=== PATIENT | male | born 1975 | race Caucasian/White ===

== ENCOUNTER 2018-01-29 08:43 | Emergency (ER) | payer BC ==
[2018-01-29] MEDS ORDERED: Sodium Chloride 0.9% 1000 ML 1,000 ML IV STA (09:12)
--- NOTE | 2018-01-29 09:21 | ERPHSYRPT ---
- History of Present Illness Time Seen by Provider: 01/29/18 09:06 Historian: patient Exam Limitations: no limitations Patient Subjective Stated Complaint: pt reports chest tightness, shortness of breath and weakness for 2 weeks [employer]. states he has a stressful job and has been working a lot lately. reports not sleeping well. reports history of panic attacks and anxiety. states "my legs feel weak" Triage Nursing Assessment: pt is aox3, pupils perrl, resps easy and non labored , lung sounds are clear throughout, radial pulses are strong and equal, heart sound are strong and regular. no edema appreciated. pt appears diaphoretic. skin is intact. pt afebrile. non radiating pain generalized to the chest - desribed as tightness. Physician History: 42 y/o male with history of anxiety comes to the ER with complaints of chest pain, shortness of breath and leg weakness. Pt states that he first had substernal chest pain 3 days ago and leg weakness for the past month. Pt states that he stays up at night from anxiety and only sleeps 3-4 hours per night. Pt describes the chest pain as dull, intermittent, as high as 5/10, and pt has not taken any pain meds. Pt also admits to occasional dyspnea and palpitations. Pt states that over the past month, his legs feel like heavy and he has a difficult time walking long distances. Timing/Duration: day(s) Activities at Onset: none Quality: dullness Location: substernal, central Chest Pain Radiation: no radiation Severity of Pain-Max: moderate Severity of Pain-Current: moderate Modifying Factors: Improves With: nothing Associated Symptoms: denies symptoms Prior Chest Pain/Cardiac Workup: no prior chest pain Nitro Today/Relief: no nitro taken today Aspirin Treatment Today: no aspirin today Allergies/Adverse Reactions: No Known Drug Allergies Allergy (Verified 08/02/14 13:55) Home Medications: Omeprazole 20 MG [Prilosec 20 mg] 20 mg PO DAILY 03/06/13 [History] Alprazolam 0.5 mg [xanAX 0.5 MG] 0.5 mg PO TID 01/29/18 [History] Trazodone HCl 50 mg [Desyrel 50 mg] 50 mg PO HS 01/29/18 [History] Valsartan/Hydrochlorothiazide [Valsartan-Hctz 160-12.5 mg Tab] 1 tablet PO DAILY 01/29/18 [History] Hx Tetanus, Diphtheria Vaccination/Date Given: Yes Hx Influenza Vaccination/Date Given: No Hx Pneumococcal Vaccination/Date Given: No Immunizations Up to Date: Yes - Review of Systems Constitutional: Weakness, No Fever, No Chills Eyes: No Symptoms Ears, Nose, & Throat: No Symptoms Respiratory: Dyspnea, Dyspnea on Exertion (MULLER), No Cough Cardiac: Chest Pain, Palpitations, No Edema, No Syncope Abdominal/Gastrointestinal: No Abdominal Pain, No Nausea, No Vomiting, No Diarrhea Genitourinary Symptoms: No Dysuria Musculoskeletal: No Back Pain, No Neck Pain Skin: No Rash Neurological: No Dizziness, No Focal Weakness, No Sensory Changes Psychological: No Symptoms Endocrine: No Symptoms All Other Systems: Reviewed and Negative - Past Medical History Pertinent Past Medical History: Yes Neurological History: No Pertinent History ENT History: No Pertinent History Cardiac History: Hypertension Respiratory History: No Pertinent History Endocrine Medical History: No Pertinent History Musculoskeletal History: No Pertinent History GI Medical History: GERD History: No Pertinent History Psycho-Social History: Anxiety, Depression, Panic Disorder Male Reproductive Disorders: No Pertinent History Other Medical History: BARRETTS ESOPHAGUS - Past Surgical History Past Surgical History: Yes Neuro Surgical History: No Pertinent History Cardiac: No Pertinent History Respiratory: No Pertinent History Gastrointestinal: Other Genitourinary: No Pertinent History Musculoskeletal: Orthopedic Surgery Male Surgical History: No Pertinent History Other Surgical History: EGD - Social History Smoking Status: Current every day smoker How long have you smoked: 23 years Exposure to second hand smoke: No Drug Use: none Patient Lives Alone: No - Nursing Vital Signs Nursing Vital Signs: Initial Vital Signs Temperature 98.5 F 01/29/18 08:49 Pulse Rate 88 01/29/18 08:49 Respiratory Rate 20 01/29/18 08:49 Blood Pressure 166/98 01/29/18 08:49 O2 Sat by Pulse Oximetry 99 01/29/18 08:49 Pain Scale Pain Intensity 1 - Physical Exam General Appearance: no apparent distress, alert Eye Exam: PERRL/EOMI, eyes nml inspection Ears, Nose, Throat Exam: normal ENT inspection, moist mucous membranes Neck Exam: normal inspection, non-tender, supple, full range of motion Respiratory Exam: normal breath sounds, lungs clear, No respiratory distress Cardiovascular Exam: regular rate/rhythm, normal heart sounds, normal peripheral pulses Gastrointestinal/Abdomen Exam: soft, normal bowel sounds, No tenderness, No mass Back Exam: normal inspection, No CVA tenderness, No vertebral tenderness Extremity Exam: normal inspection, normal range of motion Neurologic Exam: alert, oriented x 3, cooperative, normal mood/affect, sensation nml, No motor deficits Skin Exam: normal color, warm, dry SpO2: 99 Oxygen Delivery: Room Air - Course Nursing assessment & vital signs reviewed: Yes EKG Interpreted by Me: RATE, NORMAL AXIS, NORMAL INTERVALS, NORMAL QRS, NORMAL ST-T Ordered Tests: Active Orders 24 hr Category Date Time Status [employer] STAT Care 01/29/18 09:13 Active EKG-ER Only STAT Care 01/29/18 09:12 Active IV Insertion STAT Care 01/29/18 09:12 Active CHEST 2 VIEWS (PA AND LAT) Stat Exams 01/29/18 09:13 Completed CBC W DIFF Stat Lab 01/29/18 09:00 Completed CK-Creatinine Phosphokinase Stat Lab 01/29/18 09:00 Completed CMP Stat Lab 01/29/18 09:00 Completed TROPONIN Q3H Lab 01/29/18 09:00 Completed TROPONIN Q3H Lab 01/29/18 12:15 Ordered TROPONIN Q3H Lab 01/29/18 15:15 Ordered TROPONIN Q3H Lab 01/29/18 18:15 Ordered TROPONIN Q3H Lab 01/29/18 21:15 Ordered TSH, 3RD Generation Stat Lab 01/29/18 09:00 Completed UA W/RFX UR CULTURE Stat Lab 01/29/18 10:33 Completed Urine Triage Profile Stat Lab 01/29/18 09:13 Ordered Vitamin B12 Stat Lab 01/29/18 09:00 Completed Medication Summary Discontinued Medications Generic Name Dose Route Start Last Admin Trade Name Freq PRN Reason Stop Dose Admin Aspirin 81 mg 01/29/18 09:12 01/29/18 09:41 Baby Aspirin 81 Mg Chew PO 01/29/18 09:13 81 mg STAT ONE Administration Aspirin Confirm 01/29/18 09:38 Baby Aspirin 81 Mg Chew Administered 01/29/18 09:39 Dose 324 mg .ROUTE .STK-MED ONE Sodium Chloride 1,000 mls @ 999 mls/hr 01/29/18 09:12 01/29/18 09:41 Sodium Chloride 0.9% 1000 Ml IV 01/29/18 10:12 999 mls/hr .Q1H1M STA Administration Sodium Chloride Confirm 01/29/18 09:38 Sodium Chloride 0.9% 1000 Ml Administered 01/29/18 09:39 Dose 1,000 mls @ ud .ROUTE .K-MED ONE Lab/Rad Data: Laboratory Result Diagrams 01/29/18 09:00 01/29/18 09:00 Laboratory Results 01/29/18 01/29/18 01/29/18 Range/Units 10:33 09:00 09:00 WBC (4.0-10.5) K/mm3 RBC (4.1-5.6) M/mm3 Hgb (12.5-18.0) gm/dl Hct (42-50) % MCV (78-100) fl MCH (26-32) pg MCHC (32-36) g/dl RDW (11.5-14.0) % Plt Count (150-450) K/mm3 MPV (6-9.5) fl Gran % (36.0-66.0) % Eos # (Auto) (0-0.5) Absolute Lymphs (auto) (1.0-4.6) Absolute Monos (auto) (0.0-1.3) Lymphocytes % (24.0-44.0) % Monocytes % (0.0-12.0) % Eosinophils % (0.00-5.0) % Basophils % (0.0-0.4) % Absolute Granulocytes (1.4-6.9) Basophils # (0-0.4) Sodium 140 (137-145) mmol/L Potassium 4.5 (3.5-5.1) mmol/L Chloride 100 (98-107) mmol/L Carbon Dioxide 29 (22-30) mmol/L Anion Gap 15.8 H (5-15) MEQ/L BUN 18 (9-20) mg/dL Creatinine 0.94 (0.66-1.25) mg/dL Estimated GFR > 60 ML/MIN Glucose 126 H (74-106) mg/dL Calcium 9.8 (8.4-10.2) mg/dL Total Bilirubin 0.60 (0.2-1.3) mg/dL AST 26 (17-59) U/L ALT 39 (0-50) U/L Alkaline Phosphatase 83 (38-126) U/L Creatine Kinase 83 (55-170) U/L Troponin I < 0.012 (0.000-0.034) ng/mL Serum Total Protein 8.3 H (6.3-8.2) g/dL Albumin 4.7 (3.5-5.0) g/dL Vitamin B12 588 (239-931) pg/mL TSH 3rd Generation 1.650 (0.47-4.68) mIU/L Ur Collection Type CLEAN CATCH Urine Color YELLOW (YELLOW) Urine Appearance CLEAR (CLEAR) Urine pH 5.0 (5-6) Ur Specific Wenden 1.015 (1.005-1.025) Urine Protein NEGATIVE (Negative) Urine Ketones NEGATIVE (NEGATIVE) Urine Blood NEGATIVE (0-5) Dave/ul Urine Nitrite NEGATIVE (NEGATIVE) Urine Bilirubin NEGATIVE (NEGATIVE) Urine Urobilinogen NORMAL (0-1) mg/dL Ur Leukocyte Esterase NEGATIVE (NEGATIVE) Urine Culture Reflexed NO (NO) Urine Glucose NEGATIVE (NEGATIVE) mg/dL Specimen Received 01-29-18 1000 01/29/18 Range/Units 09:00 WBC 8.3 (4.0-10.5) K/mm3 RBC 5.34 (4.1-5.6) M/mm3 Hgb 15.2 (12.5-18.0) gm/dl Hct 46.6 (42-50) % MCV 87.3 (78-100) fl MCH 28.5 (26-32) pg MCHC 32.6 (32-36) g/dl RDW 14.3 H (11.5-14.0) % Plt Count 498 H (150-450) K/mm3 MPV 9.4 (6-9.5) fl Gran % 57.2 (36.0-66.0) % Eos # (Auto) 0.22 (0-0.5) Absolute Lymphs (auto) 2.37 (1.0-4.6) Absolute Monos (auto) 0.90 (0.0-1.3) Lymphocytes % 28.6 (24.0-44.0) % Monocytes % 10.8 (0.0-12.0) % Eosinophils % 2.7 (0.00-5.0) % Basophils % 0.7 (0.0-0.4) % Absolute Granulocytes 4.75 (1.4-6.9) Basophils # 0.06 (0-0.4) Sodium (137-145) mmol/L Potassium (3.5-5.1) mmol/L Chloride (98-107) mmol/L Carbon Dioxide (22-30) mmol/L Anion Gap (5-15) MEQ/L BUN (9-20) mg/dL Creatinine (0.66-1.25) mg/dL Estimated GFR ML/MIN Glucose (74-106) mg/dL Calcium (8.4-10.2) mg/dL Total Bilirubin (0.2-1.3) mg/dL AST (17-59) U/L ALT (0-50) U/L Alkaline Phosphatase (38-126) U/L Creatine Kinase (55-170) U/L Troponin I (0.000-0.034) ng/mL Serum Total Protein (6.3-8.2) g/dL Albumin (3.5-5.0) g/dL Vitamin B12 (239-931) pg/mL TSH 3rd Generation (0.47-4.68) mIU/L Ur Collection Type Urine Color (YELLOW) Urine Appearance (CLEAR) Urine pH (5-6) Ur Specific Wenden (1.005-1.025) Urine Protein (Negative) Urine Ketones (NEGATIVE) Urine Blood (0-5) Dave/ul Urine Nitrite (NEGATIVE) Urine Bilirubin (NEGATIVE) Urine Urobilinogen (0-1) mg/dL Ur Leukocyte Esterase (NEGATIVE) Urine Culture Reflexed (NO) Urine Glucose (NEGATIVE) mg/dL Specimen Received - Progress Progress: improved Progress Note: 01/29/18 10:52 The patient feels better after receiving NS fluids. The cardiac workup and workup for fatigue are all within normal limits. Pt will be d/c home and will need to F/U with PCP for possible anxiety. - Departure Time of Disposition: 10:53 Departure Disposition: Home Clinical Impression: Anxiety, Dehydration Leg weakness Qualifiers: Laterality: bilateral Qualified Code(s): R29.898 - Other symptoms and signs involving the musculoskeletal system Chest pain Qualifiers: Chest pain type: unspecified Qualified Code(s): R07.9 - Chest pain, unspecified Condition: Stable Critical Care Time: No Referrals: YOKASTA LOO MD [Primary Care Provider] - Instructions: Chest Pain (DC), Dehydration, Adult (DC), Generalized Weakness ( DC), Anxiety, Adult (DC) Additional Instructions: Follow up with your primary care doctor for any additional recommendations for chest pain, leg weakness or fatigue.
[2018-01-29 09:23] LABS: BASOPHIL % 0.7 % (0.0-0.4); Basophil (Absolute #) 0.06 (0-0.4); Eosinophil % 2.7 % (0.00-5.0); Eosinophil (Absolute #) 0.22 (0-0.5); Granulocyte Absolute (ANC) 4.75 (1.4-6.9); Granulocytes % 57.2 % (36.0-66.0); Hematocrit 46.6 % (42-50); Hemoglobin 15.2 gm/dl (12.5-18.0); Lymphocyte (Absolute #) 2.37 (1.0-4.6); Lymphocytes % 28.6 % (24.0-44.0); Mean Cell Volume 87.3 fl (78-100); Mean Corpuscular Hemoglobin 28.5 pg (26-32); Mean Corpuscular Hgb Concent. 32.6 g/dl (32-36); Mean Platelet Volume 9.4 fl (6-9.5); Monocytes % 10.8 % (0.0-12.0); Platelet Count 498 K/mm3 (150-450); Red Blood Count 5.34 M/mm3 (4.1-5.6); Red Cell Distribution Width 14.3 % (11.5-14.0); White Blood Count 8.3 K/mm3 (4.0-10.5)
[2018-01-29] MEDS ORDERED: Sodium Chloride 0.9% 1000 ML 1,000 ML ONE (09:38)
[2018-01-29] MEDS ORDERED: BABY ASPIRIN 81 MG CHEW ONE (09:38)
[2018-01-29] MEDS: BABY ASPIRIN 81 MG CHEW PO ONE (09:41)
[2018-01-29 09:46] LABS: ALBUMIN 4.7 g/dL (3.5-5.0); ALKALINE PHOSPHATASE 83 U/L (38-126); ANION GAP 15.8 MEQ/L (5-15); BLOOD UREA NITROGEN 18 mg/dL (9-20); CHLORIDE 100 mmol/L (98-107); CK-Creatinine Phosphokinase 83 U/L (55-170); Calcium 9.8 mg/dL (8.4-10.2); Carbon Dioxide 29 mmol/L (22-30); Creatinine 1 0.94 mg/dL (0.66-1.25); Glucose 126 mg/dL (74-106); Potassium 4.5 mmol/L (3.5-5.1); SGOT/AST 26 U/L (17-59); SGPT/ALT 39 U/L (0-50); SODIUM 140 mmol/L (137-145); Total Protein 8.3 g/dL (6.3-8.2)
--- NOTE | 2018-01-29 10:00 | XRAY ---
Indication: Chest tightness. Comparison: January 24, 2018. PA/lateral chest remains hyperinflated and clear. Heart and mediastinal structures within normal limits. No new/acute findings.
[2018-01-29 10:35] LABS: Vitamin B12 588 pg/mL (239-931)
[2018-01-29 10:44] LABS: Appearance CLEAR (CLEAR); Bilirubin NEGATIVE (NEGATIVE); Blood NEGATIVE Ery/ul (0-5); Glucose NEGATIVE (NEGATIVE); Ketones NEGATIVE (NEGATIVE); Leukocyte Esterase NEGATIVE (NEGATIVE); Nitrite NEGATIVE (NEGATIVE); Protein,Urine Dip NEGATIVE (Negative); Specific Gravity 1.015 (1.005-1.025); Urobilinogen NORMAL mg/dL (0-1)
[2018-01-29 11:01] LABS: Amphetamine,Urine NEGATIVE (NEGATIVE); Barbiturate,Urine NEGATIVE (NEGATIVE); Benzodiazepine,Urine POSITIVE (NEGATIVE); Cocaine,Urine NEGATIVE (NEGATIVE); Methadone,Urine NEGATIVE (NEGATIVE); Opiate,Urine NEGATIVE (NEGATIVE); PCP,Urine NEGATIVE (NEGATIVE); THC,Urine POSITIVE (NEGATIVE)
[2018-01-29 11:32] VITALS: BP 142/90; PULSE 82; O2SAT 98
== END 2018-01-29 11:32 | disposition home or self-care (01) ==
LOC: ED 08:43
DX: R07.89 Other chest pain (principal); R29.898 Other symptoms and signs involving the musculoskeletal system; F41.9 Anxiety disorder, unspecified; E86.0 Dehydration; R00.2 Palpitations; I10 Essential (primary) hypertension; Z79.899 Other long term (current) drug therapy
CPT/HCPCS: 36000; 36415; 71046; 80053; 80307; 81002; 82550; 82607; 84443; 84484; 85025; 93005; 93041; 96360; 99284; A9270-GY